=== PATIENT | female | born 1930 | race Caucasian/White ===

== ENCOUNTER 2021-11-02 08:16 | Inpatient (IN) | payer OTHER ==
[~2021-11-02] VITALS: Ht 157.5 cm; Wt 51.8 kg
[2021-11-02 08:20] VITALS: BP_SYST 133
[2021-11-02 10:39] LABS: ANION GAP 15 (5-15); CALCIUM 7.9 mg/dL (8.4-11.0); CHLORIDE 108 mmol/L (98-107); CREATININE 0.57 mg/dL (0.55-1.30); GLUCOSE 149 mg/dL (70-99); POTASSIUM 3.8 mmol/L (3.5-5.1); UREA NITROGEN, BLOOD 14 mg/dL (8-21)
[2021-11-02 10:41] LABS: BASOPHILS # (AUTO) 0.1 K/uL (0.0-0.2); BASOPHILS % (AUTO) 0.4 % (0.0-2.0); EOSINOPHILS % (AUTO) 0.1 % (0.0-4.0); HEMATOCRIT 40.5 % (36-48); LYMPHOCYTES # (AUTO) 1.8 K/uL (1.0-5.5); LYMPHOCYTES % (AUTO) 9.8 % (20.5-51.5); MEAN CORPUSCULAR VOLUME 90 fL (79.0-98.0); MONOCYTES # (AUTO) 1.5 K/uL (0.0-1.0); MONOCYTES % (AUTO) 8.2 % (1.7-9.3); NEUTROPHILS % (AUTO) 81.5 % (40.0-70.0); PLATELET COUNT (AUTO) 324 K/uL (130-430); RED BLOOD CELL COUNT(AUTO) 4.51 MIL/uL (4.2-6.2); RED CELL DISTRIBUTION WIDTH 14.6 % (9.0-15.0); WHITE BLOOD COUNT (AUTO) 18.4 K/uL (4.8-10.8)
[2021-11-02 10:52] LABS: ALANINE AMINOTRANSFERASE 33 U/L (12-78); ALBUMIN 2.6 g/dL (3.4-4.8); ASPARTATE AMINOTRANSFERASE 51 U/L (10-37); TOTAL BILIRUBIN 0.6 mg/dL (0.0-1.0)
[2021-11-02] MEDS ORDERED: AZITHROMYCIN 500 MG in NS 250 ML IV ONE (11:15)
[2021-11-02] MEDS ORDERED: PIPERACILLIN/TAZO 3.375 GM in NS 50 ML IV ONE (11:15)
[2021-11-02] MEDS ORDERED: ASPI81CA PO (11:57)
[2021-11-02] MEDS ORDERED: [UNRECOGNIZED DRUG - CODE] PO (11:57)
[2021-11-02] MEDS ORDERED: LORA-258 PO (11:57)
[2021-11-02] MEDS ORDERED: NOR10 PO (11:57)
[2021-11-02] MEDS ORDERED: OMEP-268 PO (11:57)
[2021-11-02] MEDS ORDERED: LISI40TA13 PO (11:57)
[2021-11-02] MEDS ORDERED: PIPERACILLIN/TAZOBACTAM 3.375 GM/VIAL (ZOSYN) IV ONE (12:03)
[2021-11-02] MEDS ORDERED: AZITHROMYCIN 500 MG/VIAL (ZITHROMAX) IV ONE (12:04)
[2021-11-02] MEDS ORDERED: VANCOMYCIN HCL 1,000 MG in NS 250 ML IV ONE (12:30)
[2021-11-02] MEDS ORDERED: ASPIRIN 81 MG TAB.CHEW PO ONE (13:30)
[2021-11-02] MEDS ORDERED: VANCOMYCIN HCL 1000 MG/VIAL IV ONE (14:18)
[2021-11-02] MEDS ORDERED: MORPHINE 2 MG/ML INJ. SYRINGE IVP ONE (16:00)
[2021-11-02] MEDS ORDERED: NALOXONE HCL 0.4 MG/ML AMP (NARCAN) IVP PRN ×2 (17:45)
[2021-11-02] MEDS ORDERED: LORazepam 1 MG TABLET PO PRN (17:45)
[2021-11-02] MEDS ORDERED: HYDROcodone/ACETAMIN 5-325 MG TAB (NORCO/ VICODIN) PO PRN (17:45)
[2021-11-02] MEDS ORDERED: HYDROcodone/ACETAMIN 10-325 MG TAB PO PRN (17:45)
[2021-11-02] MEDS ORDERED: ONDANSETRON HCL 4 MG/2 ML VIAL IVP PRN (17:45)
[2021-11-02] MEDS ORDERED: ACETAMINOPHEN 325 MG TABLET PO PRN (17:45)
[2021-11-02 18:25] VITALS: BP_SYST 113
[2021-11-02] MEDS: ALBUTEROL SULFATE 0.083% 2.5 MG/3 ML VIAL.NEB INH SCH (19:00)
[2021-11-02 20:30] VITALS: BP_SYST 124
[2021-11-02] MEDS ORDERED: METHADONE HCL 10 MG TABLET PO SCH (21:00)
[2021-11-02] MEDS: IPRATROPIUM BROM 0.5 MG/2.5 ML VIAL.NEB (ATROVENT) INH SCH (21:33)
[2021-11-02] MEDS ORDERED: NORMAL SALINE 5 ML DISP.SYRIN IVF SCH (22:00)
[2021-11-03] MEDS ORDERED: cefTRIAXone 1 GM IVPB PREMIX 50 ML IV ONE (00:09)
[2021-11-03] MEDS: cefTRIAXone 1 GM IVPB PREMIX 50 ML IV SCH ×2 (00:31→17:56)
[2021-11-03] MEDS: NORMAL SALINE 5 ML DISP.SYRIN IVF SCH ×4 (00:31→20:53)
[2021-11-03] MEDS: D5/0.45 NS 1,000 ML IV SCH ×2 (00:32→15:38)
[2021-11-03] MEDS: IPRATROPIUM BROM 0.5 MG/2.5 ML VIAL.NEB (ATROVENT) INH SCH ×6 (05:22→23:40)
[2021-11-03] MEDS: ALBUTEROL SULFATE 0.083% 2.5 MG/3 ML VIAL.NEB INH SCH ×6 (05:22→23:40)
[2021-11-03 07:39] LABS: BASOPHILS % (AUTO) 0.4 % (0.0-2.0); EOSINOPHILS # (AUTO) 0.1 K/uL (0.0-0.4); EOSINOPHILS % (AUTO) 0.6 % (0.0-4.0); LYMPHOCYTES # (AUTO) 1.5 K/uL (1.0-5.5); LYMPHOCYTES % (AUTO) 13.8 % (20.5-51.5); MEAN CORPUSCULAR VOLUME 88 fL (79.0-98.0); MONOCYTES # (AUTO) 0.9 K/uL (0.0-1.0); MONOCYTES % (AUTO) 7.9 % (1.7-9.3); NEUTROPHILS # (AUTO) 8.6 K/uL (1.8-7.7); NEUTROPHILS % (AUTO) 77.3 % (40.0-70.0); PLATELET COUNT (AUTO) 268 K/uL (130-430); RED BLOOD CELL COUNT(AUTO) 3.98 MIL/uL (4.2-6.2); RED CELL DISTRIBUTION WIDTH 14.8 % (9.0-15.0); WHITE BLOOD COUNT (AUTO) 11.2 K/uL (4.8-10.8)
[2021-11-03] MEDS ORDERED: ACETAMINOPHEN 325 MG TABLET PO PRN (07:45)
[2021-11-03 08:44] LABS: ALBUMIN 2.3 g/dL (3.4-4.8); ANION GAP 11 (5-15); ASPARTATE AMINOTRANSFERASE 40 U/L (10-37); CALCIUM 7.6 mg/dL (8.4-11.0); CHLORIDE 109 mmol/L (98-107); GLUCOSE 152 mg/dL (70-99); PHOSPHORUS 2.6 mg/dL (2.7-4.5); POTASSIUM 3.1 mmol/L (3.5-5.1); TOTAL BILIRUBIN 0.4 mg/dL (0.0-1.0); UREA NITROGEN, BLOOD 14 mg/dL (8-21)
[2021-11-03] MEDS ORDERED: NON-FORMULARY MEDICATION (Omeprazole 1 CAP) PO SCH (09:00)
[2021-11-03] MEDS ORDERED: lisinopriL 20 MG TABLET PO SCH (09:00)
[2021-11-03] MEDS ORDERED: amLODIPine BESYLATE 10 MG TABLET PO SCH (09:00)
[2021-11-03 09:09] LABS: ALANINE AMINOTRANSFERASE 26 U/L (12-78); C-REACTIVE PROTEIN QUANT 2.7 mg/dL (0-0.5)
[2021-11-03 09:25] VITALS: BP_SYST 113
[2021-11-03] MEDS: PANTOPRAZOLE SODIUM 40 MG TAB PO SCH (09:41)
[2021-11-03] MEDS: AZITHROMYCIN 500 MG in NS 250 ML IV SCH (09:49)
[2021-11-03] MEDS: LORazepam 1 MG TABLET PO SCH (09:50)
[2021-11-03] MEDS ORDERED: ASPIRIN 81 MG TABLET(ECOTRIN) PO ONE (12:00)
[2021-11-03 12:46] VITALS: BP_SYST 117
[2021-11-03 14:24] LABS: ERYTHROCYTE SEDIMENTATION RATE 7 MM/HR (0-20)
[2021-11-03 16:30] VITALS: BP_SYST 114
[2021-11-03] MEDS ORDERED: POTASSIUM CHLORIDE 10 MEQ TAB.PRT.SR PO ONE (18:30)
[2021-11-03 20:00] VITALS: BP_SYST 121
[2021-11-04] VITALS: BP_SYST 119
[2021-11-04] MEDS: IPRATROPIUM BROM 0.5 MG/2.5 ML VIAL.NEB (ATROVENT) INH SCH ×5 (02:11→20:12)
[2021-11-04] MEDS: ALBUTEROL SULFATE 0.083% 2.5 MG/3 ML VIAL.NEB INH SCH ×5 (02:11→20:12)
[2021-11-04] MEDS: NORMAL SALINE 5 ML DISP.SYRIN IVF SCH ×3 (06:18→21:04)
[2021-11-04 06:49] LABS: ANION GAP 10 (5-15); CALCIUM 7.1 mg/dL (8.4-11.0); CHLORIDE 109 mmol/L (98-107); GLUCOSE 146 mg/dL (70-99); POTASSIUM 3.4 mmol/L (3.5-5.1); UREA NITROGEN, BLOOD 10 mg/dL (8-21)
[2021-11-04 06:54] LABS: BASOPHILS % (AUTO) 0.5 % (0.0-2.0); EOSINOPHILS # (AUTO) 0.2 K/uL (0.0-0.4); EOSINOPHILS % (AUTO) 1.9 % (0.0-4.0); HEMATOCRIT 35.1 % (36-48); LYMPHOCYTES # (AUTO) 1.4 K/uL (1.0-5.5); LYMPHOCYTES % (AUTO) 14.6 % (20.5-51.5); MEAN CORPUSCULAR VOLUME 89 fL (79.0-98.0); MONOCYTES # (AUTO) 0.9 K/uL (0.0-1.0); MONOCYTES % (AUTO) 8.9 % (1.7-9.3); NEUTROPHILS # (AUTO) 7.3 K/uL (1.8-7.7); NEUTROPHILS % (AUTO) 74.1 % (40.0-70.0); PLATELET COUNT (AUTO) 231 K/uL (130-430); RED BLOOD CELL COUNT(AUTO) 3.93 MIL/uL (4.2-6.2); RED CELL DISTRIBUTION WIDTH 14.9 % (9.0-15.0); WHITE BLOOD COUNT (AUTO) 9.9 K/uL (4.8-10.8)
[2021-11-04 06:57] LABS: ALANINE AMINOTRANSFERASE 24 U/L (12-78); ALBUMIN 2.1 g/dL (3.4-4.8); ASPARTATE AMINOTRANSFERASE 36 U/L (10-37); TOTAL BILIRUBIN 0.4 mg/dL (0.0-1.0)
[2021-11-04 08:00] VITALS: BP_SYST 125
[2021-11-04] MEDS: PANTOPRAZOLE SODIUM 40 MG TAB PO SCH (09:19)
[2021-11-04] MEDS: lisinopriL 20 MG TABLET PO SCH (09:20)
[2021-11-04] MEDS: ASPIRIN 81 MG TABLET(ECOTRIN) PO SCH (09:21)
[2021-11-04] MEDS: ATENOLOL 25 MG TABLET(TENORMIN) PO SCH (09:21)
[2021-11-04] MEDS: amLODIPine BESYLATE 10 MG TABLET PO SCH (09:21)
[2021-11-04] MEDS: AZITHROMYCIN 500 MG in NS 250 ML IV SCH (09:22)
[2021-11-04] MEDS: LORazepam 1 MG TABLET PO SCH (09:22)
[2021-11-04] MEDS: D5/0.45 NS 1,000 ML IV SCH (09:23)
[2021-11-04] MEDS ORDERED: MORPHINE 2 MG/ML INJ. SYRINGE IVP ONE (13:00)
[2021-11-04] MEDS ORDERED: NALOXONE HCL 0.4 MG/ML AMP (NARCAN) IVP PRN ×2 (13:00→14:30)
[2021-11-04 15:16] VITALS: BP_SYST 134
[2021-11-04] MEDS: PIPERACILLIN/TAZO 2.25G/DEX-IS 50 ML IV SCH ×2 (15:31→21:04)
[2021-11-04] MEDS ORDERED: BISACODYL 10 MG/SUPPOSITORY RC PRN (17:30)
[2021-11-04 18:28] VITALS: BP_SYST 123
[2021-11-04] MEDS ORDERED: DOCUSATE SODIUM 100 MG CAPSULE PO ONE (18:45)
[2021-11-04 20:00] VITALS: BP_SYST 129
[2021-11-05 00:28] VITALS: BP_SYST 118
[2021-11-05] MEDS: IPRATROPIUM BROM 0.5 MG/2.5 ML VIAL.NEB (ATROVENT) INH SCH ×7 (00:47→23:44)
[2021-11-05] MEDS: ALBUTEROL SULFATE 0.083% 2.5 MG/3 ML VIAL.NEB INH SCH ×7 (00:47→23:44)
[2021-11-05] MEDS: NORMAL SALINE 5 ML DISP.SYRIN IVF SCH ×3 (06:38→21:35)
[2021-11-05] MEDS: PIPERACILLIN/TAZO 2.25G/DEX-IS 50 ML IV SCH ×3 (06:38→21:33)
[2021-11-05 08:00] VITALS: BP_SYST 125
[2021-11-05] MEDS: LORazepam 1 MG TABLET PO SCH (08:46)
[2021-11-05] MEDS: lisinopriL 20 MG TABLET PO SCH (08:49)
[2021-11-05] MEDS: PANTOPRAZOLE SODIUM 40 MG TAB PO SCH (08:49)
[2021-11-05] MEDS: amLODIPine BESYLATE 10 MG TABLET PO SCH (08:49)
[2021-11-05] MEDS: ASPIRIN 81 MG TABLET(ECOTRIN) PO SCH (08:50)
[2021-11-05] MEDS: DOCUSATE SODIUM 100 MG CAPSULE PO SCH ×2 (08:50→21:32)
[2021-11-05] MEDS: ATENOLOL 25 MG TABLET(TENORMIN) PO SCH (08:50)
[2021-11-05] MEDS: AZITHROMYCIN 500 MG in NS 250 ML IV SCH (09:51)
[2021-11-05] MEDS: D5/0.45 NS 1,000 ML IV SCH ×2 (09:52→21:34)
[2021-11-05] MEDS: MORPHINE 2 MG/ML INJ. SYRINGE IVP PRN ×2 (14:03→17:44)
[2021-11-05 14:20] VITALS: BP_SYST 130
[2021-11-05 16:42] VITALS: BP_SYST 124
[2021-11-05 20:00] VITALS: BP_SYST 121
[2021-11-06 01:33] VITALS: BP_SYST 131
[2021-11-06] MEDS: IPRATROPIUM BROM 0.5 MG/2.5 ML VIAL.NEB (ATROVENT) INH SCH ×3 (03:24→11:13)
[2021-11-06] MEDS: ALBUTEROL SULFATE 0.083% 2.5 MG/3 ML VIAL.NEB INH SCH ×3 (03:24→11:12)
[2021-11-06] MEDS: PIPERACILLIN/TAZO 2.25G/DEX-IS 50 ML IV SCH (05:27)
[2021-11-06] MEDS: NORMAL SALINE 5 ML DISP.SYRIN IVF SCH (05:28)
[2021-11-06 08:00] VITALS: BP_SYST 128
[2021-11-06] MEDS: DOCUSATE SODIUM 100 MG CAPSULE PO SCH (09:01)
[2021-11-06] MEDS: LORazepam 1 MG TABLET PO SCH (09:01)
[2021-11-06] MEDS: ASPIRIN 81 MG TABLET(ECOTRIN) PO SCH (09:01)
[2021-11-06] MEDS: AZITHROMYCIN 500 MG in NS 250 ML IV SCH (09:01)
[2021-11-06] MEDS: PANTOPRAZOLE SODIUM 40 MG TAB PO SCH (09:01)
[2021-11-06] MEDS: ATENOLOL 25 MG TABLET(TENORMIN) PO SCH (09:02)
[2021-11-06] MEDS: amLODIPine BESYLATE 10 MG TABLET PO SCH (09:02)
[2021-11-06] MEDS: lisinopriL 20 MG TABLET PO SCH (09:03)
[2021-11-06 10:39] VITALS: BP_SYST 128
[2021-11-06] MEDS: MORPHINE 2 MG/ML INJ. SYRINGE IVP PRN (11:37)
[2021-11-06 12:00] VITALS: BP_SYST 123
== END 2021-11-06 12:20 | disposition home or self-care (01) | DRG 177 ==
LOC: SED 08:16 → STU 15:32 → SMU 11-03 17:50 → STU 11-03 17:53
PROVIDERS: ADMIT Preventive Medicine Preventive Medicine/Occupational Environmental Medicine; ATTEND Internal Medicine
DX: J69.0 Pneumonitis due to inhalation of food and vomit (principal); G93.41 Metabolic encephalopathy; I13.0 Hypertensive heart and chronic kidney disease with heart failure and stage 1 through stage 4 chronic kidney disease, or unspecified chronic kidney disease; F03.90 Unspecified dementia, unspecified severity, without behavioral disturbance, psychotic disturbance, mood disturbance, and anxiety; E11.22 Type 2 diabetes mellitus with diabetic chronic kidney disease; G89.29 Other chronic pain; I25.10 Atherosclerotic heart disease of native coronary artery without angina pectoris; N18.9 Chronic kidney disease, unspecified; Z20.822 Contact with and (suspected) exposure to COVID-19; I25.5 Ischemic cardiomyopathy; I50.9 Heart failure, unspecified; M41.9 Scoliosis, unspecified; Z74.01 Bed confinement status; I25.2 Old myocardial infarction; Z88.1 Allergy status to other antibiotic agents; Z88.8 Allergy status to other drugs, medicaments and biological substances
CPT/HCPCS: 36415; 70450-TC; 71045; 72125-TC; 72170-TC; 73030; 76376; 80053; 83605; 83735; 83880; 84100; 84484; 85025; 85651-TC; 86140; 87040; 87081; 92610-GN; 93005; 93306; 94640; 94760; 96365; 96366; 96367; 96375; 97110-GP; 97530-GP; 99285; G0378; J0456; J0696; J2270; J2543; J3370; J7050; J7613